=== PATIENT | male | born 1930 | race Caucasian/White ===

== ENCOUNTER 2017-08-17 20:57 | Emergency (ER) | payer MEDICARE ==
[2017-08-17 21:57] LABS: BASOPHILS 0.1 % (0-2); EOSINOPHILS 0 % (0-7); HEMATOCRIT 46.6 % (42.0-54.0); HEMOGLOBIN 15.8 g/dL (13.5-17.5); IMMATURE GRANULOCYTES 0.1 % (0-5); LYMPHOCYTES 11.6 % (15-50); MCH 27.7 pg (26.0-34.0); MCHC 33.9 g/dL (31.0-37.0); MCV 81.6 fL (80.0-100.0); MEAN PLATELET VOLUME 10.1 fL (7.4-10.4); MONOCYTES 9.4 % (2-11); NEUTROPHILS 78.8 % (40-80); PLATELET COUNT 146 10x3/uL (130-400); RBC 5.71 10x6/uL (4.20-6.10); WBC 6.9 10x3/uL (4.8-10.8)
[2017-08-17 22:12] LABS: ALBUMIN 3.9 g/dL (3.4-5.0); ALKALINE PHOSPHATASE 236 U/L (46-116); ALT (SGPT) 23 U/L (10-68); BILIRUBIN - TOTAL 1.19 mg/dL (0.2-1.3); CALC OSMOLALITY 287 mosm/kg (275-300); CALCIUM 8.8 mg/dL (8.5-10.1); CARBON DIOXIDE 22.3 mmol/L (21.0-32.0); CHLORIDE - SERUM 106 mmol/L (98-107); GLUCOSE 153 mg/dL (74-106); POTASSIUM - SERUM 3.7 mmol/L (3.5-5.1); PROTEIN - SERUM 7.7 g/dL (6.4-8.2); SODIUM 142 mmol/L (136-145); UREA NITROGEN 17 mg/dL (7-18); eGFR NON AFRICAN AMERICAN 75 mL/min (90-120)
[2017-08-17 22:19] LABS: APPEARANCE TURBID (CLEAR); BACTERIA FEW /hpf (NONE SEEN); BILIRUBIN NEGATIVE (NEGATIVE); COLOR RED (YELLOW); GLUCOSE NEGATIVE (NEGATIVE); KETONE NEGATIVE (NEGATIVE); NITRITE NEGATIVE (NEGATIVE); PROTEIN 2+ mg/dL (NEGATIVE); RED CELLS - URINE >50 /hpf (0-5); SPECIFIC GRAVITY 1.015 (1.005-1.020); UROBILINOGEN NORMAL (NORMAL)
[2017-08-19 13:02] VITALS: BMI 34.4
== END 2017-08-17 23:51 | disposition home or self-care (01) ==
LOC: D.ER 20:57
PROVIDERS: Emergency Medicine
DX: N30.91 Cystitis, unspecified with hematuria (principal)

== ENCOUNTER 2017-08-18 14:56 | Inpatient (IN) | payer MEDICARE ==
[~2017-08-18] VITALS: Ht 177.8 cm; Wt 108.9 kg
[2017-08-18 16:30] LABS: BASOPHILS 0.3 % (0-2); EOSINOPHILS 0 % (0-7); HEMATOCRIT 43.5 % (42.0-54.0); HEMOGLOBIN 14.3 g/dL (13.5-17.5); IMMATURE GRANULOCYTES 0.6 % (0-5); LYMPHOCYTES 5.4 % (15-50); MCH 27.3 pg (26.0-34.0); MCHC 32.9 g/dL (31.0-37.0); MCV 83.2 fL (80.0-100.0); MEAN PLATELET VOLUME 10.4 fL (7.4-10.4); MONOCYTES 0.8 % (2-11); NEUTROPHILS 92.9 % (40-80); RBC 5.23 10x6/uL (4.20-6.10); RDW 15.6 % (11.5-14.5)
[2017-08-18 16:31] LABS: PLATELET COUNT 92 10x3/uL (130-400); WBC 3.5 10x3/uL (4.8-10.8)
[2017-08-18 16:39] LABS: ALBUMIN 3.2 g/dL (3.4-5.0); ANION GAP 18.3 mmol/L (8-16); BILIRUBIN - TOTAL 1.43 mg/dL (0.2-1.3); POTASSIUM - SERUM 3.3 mmol/L (3.5-5.1); PROTEIN - SERUM 6.8 g/dL (6.4-8.2)
[2017-08-18 16:47] LABS: CREATININE - SERUM 2.6 mg/dL (0.6-1.3)
[2017-08-18 16:54] LABS: PLATELET ESTIMATE DECREASED
[2017-08-18 17:02] LABS: TROPONIN-I 0.103 ng/mL (0.000-0.060)
[2017-08-18 19:23] LABS: CKMB 1.3 U/L (0.0-3.6); CREATINE KINASE 223 UL (21-232)
[2017-08-18 19:37] LABS: TROPONIN-I 0.207 ng/mL (0.000-0.060)
--- NOTE | 2017-08-18 22:36 | NUR ---
PATIENT ARRIVED FROM THE ER VIA STRETCHER, SLEEPING AT THIS TIME BUT OPENS EYES TO VOICE RESPONSE. FAMILY IS AT BEDSIDE. CALL LIGHT IN REACH
[2017-08-18 23:29] VITALS: BP 92/59
[2017-08-19 01:33] LABS: CKMB 3.9 U/L (0.0-3.6); CREATINE KINASE 662 UL (21-232); TROPONIN-I 0.185 ng/mL (0.000-0.060)
[2017-08-19 04:05] VITALS: BP 100/56
--- NOTE | 2017-08-19 05:31 | NUR ---
TERRY CLOTH CUTTER HAND AT BEDSIDE TO OBTAIN VITALS, WILL CONTINUE WITH PLAN OF CARE. CALL LIGHT IN REACH.
[2017-08-19 05:37] VITALS: BP 92/59; BMI 34.5
--- NOTE | 2017-08-19 06:27 | NUR ---
PT LYING IN BED, LETHARGIC, DIFFICULT TO ROUSE, EXTREME GENERALIZED WEAKNESS, WITH MINIMAL GARBLED SPEECH. RESPIRATIONS ARE LABORED AND RAPID AT THIS TIME. I HAVE ADDED A LACTIC ACID TO PTS AM LABS. CONTINUE TO MONITOR CLOSELY. BED LOW, CALL LIGHT IN REACH, SIDE RAILS X 2, HOB 30 DEGREES, BED ALARM ON.
[2017-08-19 06:47] LABS: ALBUMIN 2.8 g/dL (3.4-5.0); ALKALINE PHOSPHATASE 159 U/L (46-116); ALT (SGPT) 43 U/L (10-68); CALC OSMOLALITY 293 mosm/kg (275-300); CARBON DIOXIDE 17.3 mmol/L (21.0-32.0); CHLORIDE - SERUM 105 mmol/L (98-107); CKMB 5.2 U/L (0.0-3.6); CREATININE - SERUM 4.6 mg/dL (0.6-1.3); GLUCOSE 150 mg/dL (74-106); POTASSIUM - SERUM 3.8 mmol/L (3.5-5.1); PROTEIN - SERUM 6.2 g/dL (6.4-8.2); SODIUM 140 mmol/L (136-145); UREA NITROGEN 45 mg/dL (7-18); eGFR NON AFRICAN AMERICAN 13 mL/min (90-120)
[2017-08-19 06:48] LABS: CREATINE KINASE 989 UL (21-232)
[2017-08-19 06:52] LABS: BASOPHILS 0 % (0-2); EOSINOPHILS 0 % (0-7); HEMOGLOBIN 13.5 g/dL (13.5-17.5); IMMATURE GRANULOCYTES 1.2 % (0-5); LYMPHOCYTES 2.6 % (15-50); MCH 27.4 pg (26.0-34.0); MCHC 33.8 g/dL (31.0-37.0); MCV 81.3 fL (80.0-100.0); MEAN PLATELET VOLUME 11.1 fL (7.4-10.4); MONOCYTES 7.6 % (2-11); NEUTROPHILS 88.6 % (40-80); PLATELET COUNT 74 10x3/uL (130-400); RBC 4.92 10x6/uL (4.20-6.10); RDW 15.9 % (11.5-14.5); WBC 15.3 10x3/uL (4.8-10.8)
[2017-08-19 07:33] VITALS: BP 124/63
--- NOTE | 2017-08-19 10:11 | NUR ---
MORPHINE GIVEN FOR C/O ABD PAIN. BLOOD CLOTTS NOTED IN PULL-UP BY PIN SORTER AND BAGGER. RG CATH INSERTED WITH 16 FR CATH AND 10CC BULB. 1000CC BLOODY URINE OP NOTED. PT STATES RELIEF FROM PAIN. WILL MONITOR.
[2017-08-19] MEDS ORDERED: CIPRO500 MG PO (10:26)
[2017-08-19] MEDS ORDERED: NORCO 7.5/325 T1 TA1 PO (10:27)
--- NOTE | 2017-08-19 10:30 | NUR ---
SPOKE TO CHUYITA KUNZ ABOUT FAMILIES WISHES TO CONSULT HOSPICE. TOLD DAUGHTER THAT DR. VILLALOBOS WOULD ADDRESS THIS WHEN MAKING HER ROUNDS.
[2017-08-19 11:37] VITALS: BP 112/64
[2017-08-19 13:02] VITALS: Ht 177.8 cm; Wt 108.9 kg
--- NOTE | 2017-08-19 14:46 | NUR ---
SCDS APPLIED BILAT.
[2017-08-19 15:34] VITALS: BP 118/72
--- NOTE | 2017-08-19 16:43 | NUR ---
Patient Name: JACKY ROWLAND Admission Status: ER Accout number: [id number] Admission Date: 08-18-2017 : 1928 Admission Diagnosis: Attending: BAKARI VILLALOBOS Current LOS: 1 Anticipated DC Date: 08-20-2017 Planned Disposition: Home with Hospice Primary Insurance: [employer] MEDICARE ADV Discharge Planning Comments: * Is the patient Alert and Oriented? No 0 * How many steps to enter\exit or inside your home? 1 0 * PCP GRACIE FARMER NP WITH [facility] 0 * Pharmacy [facility] 0 * Preadmission Environment Home with Family 0 * ADLs Partial Dependent 0 * Partial ADLs (Assistance needed) Medication Management 0 * Equipment Bedside Commode Rolling Walker 0 * Other Equipment NONE 0 * List name and contact numbers for known caregivers / representatives who currently or will assist patient after discharge: SUMEET JUDGE DTR, NICOLASA, 0 * Community resources currently utilized None 0 * Please name any agencies selected above. NONE 0 * Additional services required to return to the preadmission environment? Yes * Can the patient safely return to the preadmission environment? Yes 0 * Has this patient been hospitalized within the prior 30 days at any hospital? No 0 CM RECEIVED HOSPICE ORDER, MET WITH PT IN ROOM TO DISCUSS DISCHARGE PLANNING AND NEEDS. PT CONFUSED. PT'S DAUGHTER SUMEET WITH LAMIN[employer]ce PAPERS IN CHART, REPORTS PT WAS LIVING AT HOME MOSTLY INDEPENDENT WITH SPOUSE UP TO THIS POINTE SUMEET LIVES NEXT DOOR AND IS IN AND OUT OF THE PT'S HOME ASSISTING PT AND PT'S SPOUSE. PT HAS ADJUSTABLE BED, ROLLING WALKER AND BEDSIDE COMMODE AT HOME. PT HAS NO OUTSIDE SERVICES ASSISTING IN THE HOME. CM DISCUSSED AVAILABILITY OF HOSPICE CARE AND PROVIDERS, PROVIDED BROCHURES AND LISTING OF COMPANIES. DAUGHTER WANTS [facility] FOR HOME SOON POSSIBLE. IMPORTANT MESSAGE FROM MEDICARE PROVIDED AND EXPLAINED. CM CONTACT INFORMATION PROVIDED TO RASHMI. CM CALLED [facility], , SPOKE TO BILLY AND PROVIDED REFERRAL INFORMATION. CM FAXED REFERRAL TO [phone]. ARELI MALDONADO OF [facility] ARRIVED A SHORT TIME LATER, CM INTRODUCED TO PT AND DAUGHTER IN ROOM. CM WAITING COMPLETION OF HOME HOSPICE EVALUATION AND ARRANGEMENTS TO BE COMPLETED BY [facility] FOR PT TO BE DISCHARGE HOME FOR HOSPICE ADMIT UPON ARRIVAL AT HOME. Invas Tech: Christian Pineda
[2017-08-19 20:00] VITALS: BP 107/66
--- NOTE | 2017-08-19 20:26 | NUR ---
PT YELLING OUT AND MOANING, MORPHINE 2 MG GIVEN TO LEFT HAND IV, WILL CONT TO MONITOR.
--- NOTE | 2017-08-19 23:07 | NUR ---
RESPOSITIONED IN BED FOR COMFORT, BED LOW, CL IN REACH, BED ALARM ON.
--- NOTE | 2017-08-20 01:30 | NUR ---
PT TRYING TO CLIMB OUT OF BED AND PULLING AT HIS RG CATHETER, BATH AND LINEN CHANGE COMPLETE, LOTION APPLIED TO LOWER EXTREMITIES. MAC EMMIE PLACED UNDER PT TO USE ALONG WITH BUILT IN BED ALARM. RG CATH IRRIGATED USING STERILE SALINE, A FEW SMALL CLOTS NOTED IN RG TUBING. REPLACED TELEMETRY PATCHES. REPOSITIONED IN BED FOR COMFORT, BED LOW, SR UP X3, CL IN REACH, BED ALARM ON.
--- NOTE | 2017-08-20 02:03 | NUR ---
CALL LIGHT IN REACH, WILL CONTINUE WITH PLAN OF CARE. 11 SR WITH BBB ON TELEMETRY
--- NOTE | 2017-08-20 02:47 | NUR ---
PT YELLING OUT TRYING TO CLIMB OUT OF BED, STATES THAT HE HAS TO GET UP BECAUSE HE IS IN PAIN. MORPHINE 2 MG GIVEN IV FOR C/O PAIN.
--- NOTE | 2017-08-20 03:27 | NUR ---
PT VERY AGITATIED, YELLING FOR SOMEONE TO TAKE HIM HOME, PT PULLING AT RG CATH AND TRYING TO CLIMB OVER BED RAILS, OBTAINED ORDERS FOR HALDOL. HALDOL 5MG GIVEN FOR S/S OF AGITATION. WILL CONT TO MONITOR.
[2017-08-20 04:00] VITALS: BP 122/74
[2017-08-20 06:40] LABS: ALBUMIN 2.9 g/dL (3.4-5.0); ANION GAP 20.9 mmol/L (8-16); BILIRUBIN - TOTAL 1.1 mg/dL (0.2-1.3); CALCIUM 7.4 mg/dL (8.5-10.1); CARBON DIOXIDE 17.9 mmol/L (21.0-32.0); POTASSIUM - SERUM 3.8 mmol/L (3.5-5.1); PROTEIN - SERUM 5.9 g/dL (6.4-8.2)
[2017-08-20 06:48] LABS: BASOPHILS 0.1 % (0-2); EOSINOPHILS 0.2 % (0-7); HEMATOCRIT 39.8 % (42.0-54.0); HEMOGLOBIN 13.2 g/dL (13.5-17.5); IMMATURE GRANULOCYTES 0.4 % (0-5); LYMPHOCYTES 5.9 % (15-50); MCH 27.2 pg (26.0-34.0); MCHC 33.2 g/dL (31.0-37.0); MCV 82.1 fL (80.0-100.0); MEAN PLATELET VOLUME 11.7 fL (7.4-10.4); NEUTROPHILS 84.4 % (40-80); PLATELET COUNT 76 10x3/uL (130-400); RBC 4.85 10x6/uL (4.20-6.10); RDW 16.1 % (11.5-14.5); WBC 15.7 10x3/uL (4.8-10.8)
[2017-08-20 08:21] VITALS: BP 140/72
--- NOTE | 2017-08-20 09:53 | NUR ---
RECEIVED A CALL FROM THE PATIENTS GRANDDAUGHTER. SHE STATED THAT SHE WAS CHECKING ON THE STATUS OF THE PATIENTS DISCHARGE. SHE SAID HIS SAID SOMETHING WAS SUPPOSE TO HAPPEN AT 0900 AND THEN HE WAS TO DISCHARGE AFTER. I APOLOGIZED TO HER AND EXPLAINED THAT I WAS NOT AWARE OF THAT AND DID NOT SEE ANYTHING IN MARLEN'S NOTE ABOUT THAT, BUT I WOULD CHECK INTO IT. SHE SAID THAT THE PATIENTS WOULD BE HERE IN ABOUT 20 MINUTES AND WOULD TRY TO FIND ME. I PLACED A CALL TO [facility] ([phone]) INITIALLY SPOKE WITH BILLY WHO [facility]. EUFEMIA STATED THAT THEY HAD GOT THE REFERRAL LATE YESTERDAY AND SHE WAS CURRENTLY WORKING ON IT. SHE STATED THE PATIENT WAS GOING TO NEED SOME EQUIPMENT SET UP AND THEY WERE GETTING READY TO ORDER IT AND CALL THE FAMILY TO LET THEM KNOW THAT SOMEONE WOULD CALL AND ARRANGE A TIME FOR DELIVERY. SHE THEN STATED THAT SHE NEEDED THE ACTUAL HOSPICE ORDER BECAUSE SHE WAS UNABLE TO FIND IT IN THE PAPERS SENT. THE HOSPICE ORDER WAS FAXED TO [phone]. WILL WAIT A RETURN CALL.
--- NOTE | 2017-08-20 09:58 | NUR ---
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 IV RESTARTED TO RIGHT WRIST BY SARAI DAIGLE WITH 22 GAUGE CATH. MORPHINE 2 MG AND HALDOL 5MG GIVEN IVP FOR C/O PAIN. WILL CONT. PLAN OF CARE.
[2017-08-20 12:16] VITALS: BP 138/67
--- NOTE | 2017-08-20 12:41 | NUR ---
RECEIVED A CALL FROM MANAV, STATING THAT THEY WANTED MARLEN IN THE ROOM NOW. EXPLAINED THAT MARLEN WAS NOT AVAILABLE BUT I WOULD BE RIGHT THERE. UPON ARRIVAL TO THE ROOM, THE PATIENT IS AGONAL BREATHING. THE DAUGHTER STATED THAT THE DOCTOR JUST GAVE HIM SOME HALDOL, BUT THEY WANT HIM SEDATED AND SEDATED NOW. SHE SAID THAT THE PATIENT ISN'T GOING TO MAKE IT HOME AND THEY DO NOT WANT HIM TO SUFFER. I EXPLAINED THAT RIGHT NOW THE PATIENT WAS AN ACUTE PATIENT AND THE DOCTOR MAY NOT GIVE ME THE TYPE OF ORDER THEY ARE REQUESTING, BUT I WOULD GO AND TALK TO THEM. I EXPLAINED THAT WE HAVE AN INPATIENT HOSPICE THAT I COULD CALL AND I COULD CANCEL THE [facility]. SHE YELLED AT ME ABOUT NOT BEING GIVEN THIS OPTION YESTERDAY. I APOLOGIZED TO HER AND EXPLAINED I WOULD TALK TO THE DOCTOR AND THEN START MAKING OTHER ARRANGEMENTS. I SPOKE WITH CHUYITA STANLEY CNP WHO STATED THAT DR VILLALOBOS WAS IN THE ROOM AND SHE WAS AWARE OF THE SITUTATION. SHE STATED THAT HALDOL HAD BEEN ORDERED AND GIVEN. SHE IS NOT RECEPTIVE TO ORDERING A DOSE OF MORPHINE TO ASSIST WITH EASING HIS BREATHING. A CALL WAS PLACED TO TONI AT [facility] AND SHE STATED THAT TODD SHOULD STILL BE IN THE HOSPITAL AND SHE WOULD SEND HER A MESSAGE ASKING HER TO COME OVER. PATIENT INFORMATION FAXED TO HER AT [phone]. AFTER MULTIPLE FAILED ATTEMPTS TO [facility], I FINALLY SPOKE WITH EUFEMIA AND GAVE HER AN UPDATE, EXPLAINING THAT THE FAMILY IS NOW WANTING TO DO INPATIENT HOSPICE. AN UPDATE WILL BE GIVEN TO THE FAMILY.
--- NOTE | 2017-08-20 12:58 | NUR ---
NO RESP. NO PULSE. CHUYITA KUNZ NOTITIED. DR. VILLALOBOS TO PRONOUNCE.
--- NOTE | 2017-08-20 13:01 | NUR ---
DR. VILLALOBOS AT TO PRONOUNCE.
--- NOTE | 2017-08-20 13:02 | NUR ---
DR. VILLALOBOS AT TO PRONOUNCE.
--- NOTE | 2017-08-20 13:14 | NUR ---
WAS NOTIFIED BY SARAI RN, BEDSIDE NURSE THAT THE PATIENT HAS . [facility] LET HER KNOW WELL TO BILLY AT [facility] TO MAKE THEM AWARE SINCE EUFEMIA SAID THAT THE EQUIPMENT HAD ALREADY BEEN DELIVERED TO THE HOUSE AND THEY WERE GOING TO HAVE TO PICK IT UP. AT THIS TIME BILLY EXPLAINED THAT THEY WOULD NOT BE CONTACTING THE FAMILY. SHE STATED THAT THEY WERE ABLE TO STOP THE DELIVERY BEFORE IT HAPPENED. I THANKED THEM FOR THEIR TIME.
--- NOTE | 2017-08-20 14:11 | NUR ---
DENIED BY DOUG. IV AND TELEMETRY AND IFRAH DCD BY NURSING STUDENTS. NOTIFIED FOR TRANSPORTATION.
--- NOTE | 2017-08-20 14:14 | EC ---
PATIENT:JACKY ROWLAND DATE OF SERVICE: 08/18/17 SEX: M MEDICAL RECORD: [id number] DATE OF : [birth year] LOCATION:D.M2 D.211 AGE OF PATIENT: 86 ADMISSION DATE: 08/18/17 REFERRING PHYSICIAN: INTERPRETING PHYSICIAN: KIKE VANCE MD ECHOCARDIOGRAM REPORT ECHO CHARGES 4 ECHO COMPLETE CLINICAL DIAGNOSIS: DYSPNEA/CHF ECHOCARDIOGRAPHIC MEASUREMENTS (adult normal given) AC root (d.<3.7cm) 3.5 cm LV Septum d (<1.2 cm> 1.5 cm Valve Excursion 2.0 cm LV Septum (systole) 1.7 cm Left Atria (s.<4.0cm> 3.7 cm LVPW d(<1.2cm) 1.7 cm RV (d.<2.3cm) 2.9 cm LVPW (sytole) 2.1 cm LV diastole(<5.6CM) 5.2 cm MV E-F(>70mm/sec) cm LV systole 4.0 cm LVOT Diameter 1.5 cm MV exc.(>10mm) 1.1 cm Est.ejection fraction (50-75%) % Pericardial Effusion N DOPPLER: LVIT cm/sec A 91.0 cm/sec E 50.0 cm/sec LA cm/sec RVSP 20 mmHg LVOT cm/sec AOP1/2T m/s Asc. Ao cm/sec RVOT 92 cm/sec RA cm/sec PA 159 cm/sec AV Gradient Peak 10.06mmHg AV Mean 5.66 mmHg AV Area 1.2 cm MV Gradient Peak 4.37 mmHg MV Mean 1.60 mmHg MV Area cm COMMENTS: Laboratory Operations Coordinator: Fixed Route Operator: Andrzej Ybarra TAPE# 2 PACS DATE OF SERVICE: 08/19/2017 FINDINGS: 1. Left ventricular chamber size is within normal limits. Left ventricular systolic function is normal. Overall ejection fraction estimated at 55%. 2. Left atrium, right atrium, and right ventricular chamber sizes are within normal limits. 3. Valvular structures have normal structure and motion. 4. Doppler interrogation reveals only mild tricuspid regurgitation, no other valvular insufficiency or stenosis. Pulmonary systolic pressure is normal, ECHOCARDIOGRAM REPORT [id number] JACKY ROWLAND estimated at 20 mmHg. 5. No evidence of pericardial effusion or left ventricular thrombus. TRANSINT:[id number] Voice Confirmation ID: [id number] DOCUMENT ID: [id number] KIKE VANCE MD at 1414 CC: [id number] DICTATION DATE: 08/20/17 110 MATERIALS SCIENTIST: 08/20/17 1147 ADM IN [facility] [address] [id number]
--- NOTE | 2017-08-20 14:14 | CN ---
PATIENT NAME:JACKY ROWLAND MEDICAL RECORD: [id number] : [birth year] LOCATION:. D.2115 ADMIT DATE: 08/18/17 ACCOUNT: [id number] CONSULTING PHYSICIAN: KIKE VANCE MD REFERRING PHYSICIAN: BAKARI VILLALOBOS MD DATE OF CONSULTATION: 08/19/2017 DIAGNOSES: 1. Shortness of breath. 2. Elevated troponin. 3. Renal failure. HISTORY OF PRESENT ILLNESS: This is a gentleman who was sent to the Emergency Room with increasing shortness of breath. He requested to be a DNR and does not want anything done. He does have an elevated troponin. He also has a creatinine of 4.6. No known cardiac history. The patient is a very poor historian. His EKG is sinus tachycardia at 121, but no acute ST-T abnormalities, systolic blood pressure is in the 90-100 range. PHYSICAL EXAMINATION: GENERAL APPEARANCE: Well-nourished, well-developed, appears stated age. Level of distress, comfortable. PSYCHIATRIC: Mental status, alert, normal affect. Orientation, oriented to time, place and person. EYES: Lids and conjunctiva, noninjected. No discharge, no pallor. ENT: Lips, teeth, gums, normal dentition. Oropharynx, no cyanosis, no pallor. NECK: Carotid arteries, bilateral normal upstroke, no bruits, no thrills. JUGULAR VEINS: No jugular venous pressure or distention. CERVICAL LYMPH NODES: Nontender, nonenlarged. THYROID: Not enlarged. Nontender. No nodules. LUNGS: Respiratory effort, unlabored. CHEST: Normal curvature. No thoracic deformity. No chest wall tenderness. Percussion, resonant. Auscultation, clear. No wheezes, no rales, no rhonchi. CARDIOVASCULAR: Precordial exam, nondisplaced. No heaves or pericardial thrills. Rate and rhythm, regular. Heart sounds, normal S1, normal S2. No S3, no gallop, no rub. Systolic murmur, not heard. Diastolic murmur, not heard. EXTREMITIES: No cyanosis, no edema. Peripheral pulses, full and equal in all extremities, except as noted. No bruits appreciated. ABDOMEN: Soft, nondistended. Normal aorta. No bruit. Nontender. No masses. Liver, nontender, no hepatomegaly. Spleen, nontender, no splenomegaly. MUSCULOSKELETAL: No joint tenderness. No joint swelling. No erythema. NEUROLOGICAL: Normal gait, normal strength, normal tone. SKIN: Warm and dry. OVERALL IMPRESSION: Acute renal failure, most likely this is not primary cardiac, most likely this is primary renal. The patient wants to be a DNR comfort care only. No other cardiac workup or treatment is necessary. TRANSINT:[id number] Voice Confirmation ID: [id number] DOCUMENT ID: [id number] CONSULT REPORT [id number] JACKY ROWLAND JEFFREY MD at 1414 CC: [id number] DICTATION DATE: 08/19/17825 EL TEACHER: 08/19/17 0842 ADM IN [place] [id number] [place] [id number]
--- NOTE | 2017-08-20 16:25 | NUR ---
LEAVING DENISE BY JT.
== END 2017-08-20 16:25 | DRG 683 ==
LOC: D.ER 14:56 → D.M2 16:23
PROVIDERS: Emergency Medicine; ADMIT Emergency Medicine
DX: N17.9 Acute kidney failure, unspecified (principal); I50.32 Chronic diastolic (congestive) heart failure; R79.89 Other specified abnormal findings of blood chemistry; N28.89 Other specified disorders of kidney and ureter